=== PATIENT | male | born 1990 | race African-American/Black ===

== ENCOUNTER 2017-07-10 07:13 | Inpatient (IN) | payer MEDICARE, MEDICAID ==
[~2017-07-10] VITALS: Ht 170.2 cm; Wt 89.5 kg
[~2017-07-10 07:13] MED LIST: DIVA250T60 PO; DIVA500T69 PO; RISP4 PO
[2017-07-10 08:51] VITALS: BP 109/74
[2017-07-10] MEDS ORDERED: RISP1 PO (09:49)
[2017-07-10] MEDS ORDERED: OLAN2.5T3 PO (09:49)
[2017-07-10 10:08] VITALS: BP 117/69
[2017-07-10] MEDS ORDERED: INFLUENZA VIRUS VACCINE QVS 2017-18 (3YR+)/PF 60 MCG/0.5 ML SYRINGE IM ONE (10:30)
[2017-07-10] MEDS ORDERED: PALI234D IM (11:30)
[2017-07-10] MEDS ORDERED: OLAN10TA3 PO ×2 (11:30)
[2017-07-10 15:56] VITALS: BP 101/47
[2017-07-10] MEDS ORDERED: LOPERAMIDE HCL 2 MG CAPSULE PO PRN (17:45)
[2017-07-10] MEDS ORDERED: CloNIDine HCL 0.1 MG TABLET PO PRN (17:45)
[2017-07-10] MEDS ORDERED: ALBUTEROL SULFATE HFA 90 MCG/PUFF 8 GM INHALER IH PRN (17:45)
[2017-07-10] MEDS ORDERED: PETROLATUM,WHITE 71 GM JELLY TP PRN (17:45)
[2017-07-10] MEDS ORDERED: ONDANSETRON HCL 4 MG TABLET PO PRN (17:45)
[2017-07-10] MEDS ORDERED: BENZOCAINE/MENTHOL LOZENGE MM PRN (17:45)
[2017-07-10] MEDS ORDERED: MAGNESIUM HYDROXIDE SUSPENSION 30 ML UDCUP PO PRN (17:45)
[2017-07-10] MEDS ORDERED: IBUPROFEN 600 MG TABLET PO PRN (17:45)
[2017-07-10] MEDS ORDERED: ACETAMINOPHEN 325 MG TABLET PO PRN (17:45)
[2017-07-10] MEDS ORDERED: BACITRACIN 28.4 GM OINTMENT TP PRN (17:45)
[2017-07-10 18:07] VITALS: BP 108/58
[2017-07-10] MEDS: OLANZapine 7.5 MG TABLET PO SCH (20:16)
[2017-07-11 06:45] VITALS: BP 112/64
[2017-07-11 08:04] VITALS: BP 108/65
[2017-07-11] MEDS: DOCUSATE SODIUM 100 MG CAPSULE PO SCH (08:09)
[2017-07-11] MEDS: OMEPRAZOLE 20 MG CAPSULE PO SCH (08:09)
[2017-07-11 16:02] VITALS: BP 107/68
[2017-07-11] MEDS: OLANZapine 7.5 MG TABLET PO SCH (20:04)
[2017-07-12 05:51] VITALS: BP 117/64
[2017-07-12 08:30] VITALS: BP 123/80
[2017-07-12 08:42] LABS: BASOPHILS # (AUTO) 0.05 K/uL (0.00-0.20); BASOPHILS % (AUTO) 0.7 % (0.0-2.0); EOSINOPHILS # (AUTO) 0.26 K/uL (0.00-0.70); EOSINOPHILS % (AUTO) 3.75 % (1.0-6.0); HEMATOCRIT 44.4 % (41-53); HEMOGLOBIN 14.6 g/dL (13.5-17.5); LYMPHOCYTES # (AUTO) 2.4 K/uL (1.0-4.8); LYMPHOCYTES % (AUTO) 34.4 % (22.0-44.0); MEAN CORPUSCULAR HEMOGLOBIN 29.9 pg (26.0-34.0); MEAN CORPUSCULAR HGB CONC 32.8 G/dL (31.0-37.0); MEAN CORPUSCULAR VOLUME 91 fL (80-100); MONOCYTES # (AUTO) 0.6 K/uL (0.1-1.0); MONOCYTES % (AUTO) 7.9 % (2.0-9.0); NEUTROPHILS # (AUTO) 3.7 K/uL (1.8-7.7); NEUTROPHILS % (AUTO) 53.3 % (40.0-70.0); PLATELET COUNT (AUTO) 291 K/uL (150-450); RED BLOOD CELL COUNT(AUTO) 4.87 MIL/uL (4.50-5.90)
[2017-07-12] MEDS: DOCUSATE SODIUM 100 MG CAPSULE PO SCH (08:51)
[2017-07-12] MEDS: OMEPRAZOLE 20 MG CAPSULE PO SCH (08:52)
[2017-07-12 09:22] LABS: HEMOGLOBIN A1C 5.1 % (4.5-6.2)
[2017-07-12 09:44] LABS: ALANINE AMINOTRANSFERASE 61 U/L (12-78); ALBUMIN 3.5 g/dL (3.4-5.0); ALKALINE PHOSPHATASE 67 U/L (46-116); ANION GAP 9 mmol/L (8-16); ASPARTATE AMINOTRANSFERASE 40 U/L (15-37); BILIRUBIN,TOTAL 0.3 mg/dL (0.1-1.0); CALCIUM, TOTAL 8.6 mg/dL (8.8-10.5); CARBON DIOXIDE 27 mmol/L (22-29); CHLORIDE 104 mmol/L (98-107); CHOL/HDL RATIO 4.4 (4.2-7.3); CHOLESTEROL 146 mg/dL (131-200); CREATININE 1.12 mg/dL (0.60-1.30); GLOMERULAR FILTR. RATE CALC > 60 mL/min (>60); GLUCOSE,RANDOM 81 mg/dL (70-110); HDL CHOLESTEROL 33 mg/dL (40-60); LDL CHOL (CALC.) 103 mg/dL (0-130); POTASSIUM 4.1 mmol/L (3.5-5.1); SODIUM SERUM 140 mmol/L (136-145); TRIGLYCERIDES 48 mg/dL (15-150); UREA NITROGEN, BLOOD 12 mg/dL (7-18)
[2017-07-12 10:07] LABS: FREE T4 (FREE THYROXINE) 0.93 ng/dL (0.76-1.46); THYROID STIMULATING HORMONE 1.21 uIU/mL (0.36-3.74)
[2017-07-12 16:10] VITALS: BP 114/59
[2017-07-12 19:37] VITALS: BP 134/78
[2017-07-12] MEDS: LORazepam 2 MG TABLET PO PRN (19:40)
[2017-07-12] MEDS: OLANZapine 7.5 MG TABLET PO SCH (20:06)
[2017-07-13 00:26] VITALS: BP 108/69
[2017-07-13 08:30] VITALS: BP 122/80
[2017-07-13] MEDS: DOCUSATE SODIUM 100 MG CAPSULE PO SCH (09:20)
[2017-07-13] MEDS: OMEPRAZOLE 20 MG CAPSULE PO SCH (09:20)
[2017-07-13 16:14] VITALS: BP 117/62
[2017-07-13] MEDS: LORazepam 2 MG TABLET PO PRN (18:37)
[2017-07-13] MEDS: OLANZapine 7.5 MG TABLET PO SCH (20:31)
[2017-07-13] MEDS: MAG HYDROX/AL HYDROX/SIMETH ES 30 ML SUSPENSION UDCUP PO PRN (21:11)
[2017-07-13] MEDS: ZOLPIDEM TARTRATE 10 MG TABLET PO PRN (21:12)
[2017-07-14 00:15] VITALS: BP 112/62
[2017-07-14] MEDS: OMEPRAZOLE 20 MG CAPSULE PO SCH (08:25)
[2017-07-14] MEDS: DOCUSATE SODIUM 100 MG CAPSULE PO SCH (08:25)
[2017-07-14 08:26] VITALS: BP 123/71
[2017-07-14] MEDS: LORazepam 2 MG TABLET PO PRN ×3 (10:38→21:06)
[2017-07-14 16:19] VITALS: BP 133/77
[2017-07-14] MEDS: OLANZapine 7.5 MG TABLET PO SCH (20:42)
[2017-07-15 04:37] VITALS: BP 129/72
[2017-07-15 08:34] VITALS: BP 100/58
[2017-07-15] MEDS: OMEPRAZOLE 20 MG CAPSULE PO SCH (08:36)
[2017-07-15] MEDS: DOCUSATE SODIUM 100 MG CAPSULE PO SCH (08:36)
[2017-07-15] MEDS: LORazepam 2 MG TABLET PO PRN ×2 (11:46→16:15)
[2017-07-15 16:36] VITALS: BP 140/74
[2017-07-15] MEDS: OLANZapine 7.5 MG TABLET PO SCH (20:11)
[2017-07-16 03:00] VITALS: BP 132/82
[2017-07-16] MEDS: OMEPRAZOLE 20 MG CAPSULE PO SCH (08:33)
[2017-07-16] MEDS: DOCUSATE SODIUM 100 MG CAPSULE PO SCH (08:33)
[2017-07-16 08:35] VITALS: BP 105/72
[2017-07-16] MEDS: LORazepam 2 MG TABLET PO PRN ×2 (11:49→16:31)
[2017-07-16 16:07] VITALS: BP 110/75
[2017-07-16] MEDS: OLANZapine 7.5 MG TABLET PO SCH (20:24)
[2017-07-16] MEDS: ZOLPIDEM TARTRATE 10 MG TABLET PO PRN (20:24)
[2017-07-16] MEDS: HALOPERIDOL 5 MG TABLET PO PRN (20:55)
[2017-07-17 05:41] VITALS: BP 104/60
[2017-07-17] MEDS: DOCUSATE SODIUM 100 MG CAPSULE PO SCH (08:22)
[2017-07-17] MEDS: OMEPRAZOLE 20 MG CAPSULE PO SCH (08:22)
[2017-07-17 08:53] VITALS: BP 134/70
[2017-07-17 09:08] LABS: AMPHET/METH SCREEN,URINE NEGATIVE (NEGATIVE); BARBITURATE SCREEN, URINE NEGATIVE (NEGATIVE); BENZODIAZEPINES SCREEN,URINE NEGATIVE (NEGATIVE); CANNABINOID SCREEN,URINE NEGATIVE (NEGATIVE); COCAINE SCREEN,URINE NEGATIVE (NEGATIVE); METHADONE SCREEN, URINE NEGATIVE (NEGATIVE); OPIATE SCREEN,URINE NEGATIVE (NEGATIVE)
[2017-07-17 09:14] LABS: PHENCYCLIDINE SCREEN,URINE NEGATIVE (NEGATIVE)
[2017-07-17 09:46] LABS: BILIRUBIN,URINE NEGATIVE (NEGATIVE); GLUCOSE, URINE (UA) NEGATIVE (NEGATIVE); KETONES,URINE NEGATIVE (NEGATIVE); LEUKOCYTE ESTERASE ,URINE NEGATIVE (NEGATIVE); NITRATE,URINE NEGATIVE (NEGATIVE); OCCULT BLOOD,URINE NEGATIVE (NEGATIVE); PH,URINE 8.5 (5.0-8.0); PROTEIN,URINE NEGATIVE (NEGATIVE); UROBILINOGEN,URINE 0.2 mg/dL (<=1.0)
[2017-07-17 09:47] LABS: APPEARANCE,URINE CLOUDY (CLEAR)
[2017-07-17 10:35] LABS: AMORPHOUS SEDIMENT,UR Moderate /LPF (None Seen); BACTERIA,URINE None Seen /HPF (None Seen); RBC,URINE None Seen /HPF (0-2); SQUAMOUS EPITHELIAL CELL,UR Rare /LPF (None Seen); WBC,URINE None Seen /HPF (0-5)
[2017-07-17 11:34] VITALS: BP 139/90
[2017-07-17] MEDS: LORazepam 2 MG TABLET PO PRN ×2 (11:35→17:13)
[2017-07-17 16:04] VITALS: BP 128/86
[2017-07-17] MEDS: OLANZapine 7.5 MG TABLET PO SCH (20:15)
[2017-07-17] MEDS: ZOLPIDEM TARTRATE 10 MG TABLET PO PRN (21:50)
[2017-07-18 00:57] VITALS: BP 108/61
[2017-07-18] MEDS: DOCUSATE SODIUM 100 MG CAPSULE PO SCH (08:04)
[2017-07-18] MEDS: OMEPRAZOLE 20 MG CAPSULE PO SCH (08:04)
[2017-07-18] MEDS: LORazepam 2 MG TABLET PO PRN (15:00)
[2017-07-18 16:06] VITALS: BP 127/77
[2017-07-18] MEDS: OLANZapine 7.5 MG TABLET PO SCH (20:12)
[2017-07-18] MEDS: ZOLPIDEM TARTRATE 10 MG TABLET PO PRN (21:37)
[2017-07-19 06:14] VITALS: BP 101/60
[2017-07-19] MEDS: OMEPRAZOLE 20 MG CAPSULE PO SCH (08:24)
[2017-07-19] MEDS: DOCUSATE SODIUM 100 MG CAPSULE PO SCH (08:24)
[2017-07-19 08:30] VITALS: BP 112/60
[2017-07-19] MEDS: LORazepam 2 MG TABLET PO PRN (12:58)
[2017-07-19 16:13] VITALS: BP 103/58
[2017-07-19] MEDS: OLANZapine 7.5 MG TABLET PO SCH (20:16)
[2017-07-19] MEDS: ZOLPIDEM TARTRATE 10 MG TABLET PO PRN (21:24)
[2017-07-20 06:34] VITALS: BP 101/60
[2017-07-20] MEDS: DOCUSATE SODIUM 100 MG CAPSULE PO SCH (08:42)
[2017-07-20] MEDS: OMEPRAZOLE 20 MG CAPSULE PO SCH (08:42)
[2017-07-20 13:26] VITALS: BP 121/63
[2017-07-20 16:14] VITALS: BP 128/72
[2017-07-20] MEDS: LORazepam 2 MG TABLET PO PRN (19:09)
[2017-07-20] MEDS: OLANZapine 7.5 MG TABLET PO SCH (20:39)
[2017-07-21] MEDS: OMEPRAZOLE 20 MG CAPSULE PO SCH (08:20)
[2017-07-21] MEDS: DOCUSATE SODIUM 100 MG CAPSULE PO SCH (08:20)
[2017-07-21 10:44] VITALS: BP 115/76
[2017-07-21 16:21] VITALS: BP 108/59
[2017-07-21] MEDS: OLANZapine 7.5 MG TABLET PO SCH (20:09)
[2017-07-21] MEDS: ZOLPIDEM TARTRATE 10 MG TABLET PO PRN (20:51)
[2017-07-22 00:45] VITALS: BP 121/71
[2017-07-22] MEDS: DOCUSATE SODIUM 100 MG CAPSULE PO SCH (08:13)
[2017-07-22] MEDS: OMEPRAZOLE 20 MG CAPSULE PO SCH (08:13)
[2017-07-22 08:42] VITALS: BP 112/66
[2017-07-22] MEDS: LORazepam 2 MG TABLET PO PRN ×2 (13:55→18:57)
[2017-07-22 16:16] VITALS: BP 133/71
[2017-07-22] MEDS: HALOPERIDOL 5 MG TABLET PO PRN (17:54)
[2017-07-22] MEDS: OLANZapine 7.5 MG TABLET PO SCH (20:04)
[2017-07-22] MEDS: ZOLPIDEM TARTRATE 10 MG TABLET PO PRN (20:33)
[2017-07-23 08:24] VITALS: BP 105/60
[2017-07-23] MEDS: OMEPRAZOLE 20 MG CAPSULE PO SCH (08:27)
[2017-07-23] MEDS: DOCUSATE SODIUM 100 MG CAPSULE PO SCH (08:27)
[2017-07-23] MEDS: LORazepam 2 MG TABLET PO PRN ×2 (12:43→17:04)
[2017-07-23 16:08] VITALS: BP 122/60
[2017-07-23] MEDS: HALOPERIDOL 5 MG TABLET PO PRN (18:42)
[2017-07-23] MEDS: OLANZapine 7.5 MG TABLET PO SCH (20:17)
[2017-07-23] MEDS: ZOLPIDEM TARTRATE 10 MG TABLET PO PRN (21:33)
[2017-07-24 01:42] VITALS: BP 132/90
[2017-07-24 08:30] VITALS: BP 123/81
[2017-07-24] MEDS: DOCUSATE SODIUM 100 MG CAPSULE PO SCH (08:36)
[2017-07-24] MEDS: OMEPRAZOLE 20 MG CAPSULE PO SCH (08:36)
[2017-07-24] MEDS: LORazepam 2 MG TABLET PO PRN (13:10)
[2017-07-24] MEDS ORDERED: TUBERCULIN, PURIFIED PROTEIN DERIVATIVE 5 TU/0.1 ML SYG ID ONE (13:45)
[2017-07-24] MEDS: HALOPERIDOL 5 MG TABLET PO PRN (15:44)
[2017-07-24 16:19] VITALS: BP 100/82
[2017-07-24] MEDS: OLANZapine 7.5 MG TABLET PO SCH (20:05)
[2017-07-24] MEDS: ZOLPIDEM TARTRATE 10 MG TABLET PO PRN (21:50)
[2017-07-25 00:18] VITALS: BP 117/83
[2017-07-25] MEDS: DOCUSATE SODIUM 100 MG CAPSULE PO SCH (08:20)
[2017-07-25] MEDS: OMEPRAZOLE 20 MG CAPSULE PO SCH (08:20)
[2017-07-25 08:34] VITALS: BP 107/60
[2017-07-25] MEDS: LORazepam 2 MG TABLET PO PRN (15:46)
[2017-07-25 16:14] VITALS: BP 108/61
[2017-07-25] MEDS: HALOPERIDOL 5 MG TABLET PO PRN (18:45)
[2017-07-25] MEDS: OLANZapine 7.5 MG TABLET PO SCH (20:05)
[2017-07-26 06:01] VITALS: BP 105/60
[2017-07-26 08:30] VITALS: BP 107/63
[2017-07-26] MEDS: OMEPRAZOLE 20 MG CAPSULE PO SCH (08:47)
[2017-07-26] MEDS: DOCUSATE SODIUM 100 MG CAPSULE PO SCH (08:47)
[2017-07-26 16:06] VITALS: BP 119/69
[2017-07-26] MEDS: LORazepam 2 MG TABLET PO PRN (17:35)
[2017-07-26] MEDS: ZOLPIDEM TARTRATE 10 MG TABLET PO PRN (20:19)
[2017-07-26] MEDS: OLANZapine 7.5 MG TABLET PO SCH (20:19)
[2017-07-27 05:41] VITALS: BP 112/61
[2017-07-27 08:14] VITALS: BP 111/61
[2017-07-27] MEDS: OMEPRAZOLE 20 MG CAPSULE PO SCH (08:33)
[2017-07-27] MEDS: DOCUSATE SODIUM 100 MG CAPSULE PO SCH (08:33)
[2017-07-27] MEDS: MAG HYDROX/AL HYDROX/SIMETH ES 30 ML SUSPENSION UDCUP PO PRN (15:06)
[2017-07-27 16:05] VITALS: BP 105/60
[2017-07-27] MEDS: ZOLPIDEM TARTRATE 10 MG TABLET PO PRN (20:22)
[2017-07-27] MEDS: OLANZapine 7.5 MG TABLET PO SCH (20:22)
[2017-07-27] MEDS: LORazepam 2 MG TABLET PO PRN (22:05)
[2017-07-28 00:01] VITALS: BP 107/63
[2017-07-28 08:13] VITALS: BP 131/86
[2017-07-28] MEDS: OMEPRAZOLE 20 MG CAPSULE PO SCH (09:09)
[2017-07-28] MEDS: DOCUSATE SODIUM 100 MG CAPSULE PO SCH (09:09)
[2017-07-28] MEDS: LORazepam 2 MG TABLET PO PRN ×2 (13:21→17:55)
[2017-07-28 16:03] VITALS: BP 129/82
[2017-07-28] MEDS: OLANZapine 7.5 MG TABLET PO SCH (20:32)
[2017-07-28] MEDS: ZOLPIDEM TARTRATE 10 MG TABLET PO PRN (21:14)
[2017-07-29 00:01] VITALS: BP 110/68
[2017-07-29 08:55] VITALS: BP 115/57
[2017-07-29] MEDS: DOCUSATE SODIUM 100 MG CAPSULE PO SCH (09:31)
[2017-07-29] MEDS: OMEPRAZOLE 20 MG CAPSULE PO SCH (09:31)
[2017-07-29] MEDS: LORazepam 2 MG TABLET PO PRN (12:20)
== END 2017-07-29 14:30 | disposition home or self-care (01) | DRG 885 ==
LOC: B2X 09:23
PROVIDERS: ADMIT Psychiatry & Neurology Psychiatry; ATTEND Psychiatry & Neurology Psychiatry
DX: F20.0 Paranoid schizophrenia (principal); E83.51 Hypocalcemia; F17.200 Nicotine dependence, unspecified, uncomplicated; G47.00 Insomnia, unspecified; K59.00 Constipation, unspecified; Z79.899 Other long term (current) drug therapy
CPT/HCPCS: 80307; 82306; 83036; 84439; 84443

== ENCOUNTER 2018-08-18 22:54 | Emergency (ER) | payer MEDICARE, OTHER ==
[~2018-08-18] VITALS: Ht 172.7 cm; Wt 90.5 kg
[~2018-08-18 22:54] MED LIST changes: -DIVA250T60 PO; -DIVA500T69 PO; +OLAN10TA3 PO; +PALI234D IM; -RISP4 PO
[2018-08-19] MEDS ORDERED: DIVA-78 PO (00:28)
[2018-08-19] MEDS ORDERED: ZOLP5 PO (00:28)
[2018-08-19] MEDS ORDERED: HALO50VI4 IM (00:28)
[2018-08-19] MEDS ORDERED: BENZ1TAB10 PO (00:28)
[2018-08-19] MEDS ORDERED: ATEN50TA PO (00:28)
[2018-08-19] MEDS ORDERED: LORA2TAB2 PO (00:28)
[2018-08-19] MEDS ORDERED: CLOZ100 PO (00:28)
[2018-08-19] MEDS ORDERED: CHLO100T24 PO (00:28)
[2018-08-19] MEDS ORDERED: DIPH50 PO (00:28)
[2018-08-19 00:56] LABS: EOSINOPHILS % (AUTO) 0.5 % (1.0-6.0); HEMATOCRIT 43.5 % (41-53); HEMOGLOBIN 14.3 g/dL (13.5-17.5); LYMPHOCYTES # (AUTO) 2.9 K/uL (1.0-4.8); LYMPHOCYTES % (AUTO) 24.2 % (22.0-44.0); MEAN CORPUSCULAR HEMOGLOBIN 30.2 pg (26.0-34.0); MEAN CORPUSCULAR HGB CONC 32.9 G/dL (31.0-37.0); MEAN CORPUSCULAR VOLUME 92 fL (80-100); MONOCYTES # (AUTO) 1.3 K/uL (0.1-1.0); MONOCYTES % (AUTO) 11.1 % (2.0-9.0); NEUTROPHILS # (AUTO) 7.7 K/uL (1.8-7.7); NEUTROPHILS % (AUTO) 63.2 % (40.0-70.0); PLATELET COUNT (AUTO) 242 K/uL (150-450); RED BLOOD CELL COUNT(AUTO) 4.74 MIL/uL (4.50-5.90); RED CELL DISTRIBUTION WIDTH 14.3 % (11.5-14.5)
[2018-08-19 01:05] LABS: ANION GAP 8 mmol/L (8-16); CALCIUM, TOTAL 9.4 mg/dL (8.8-10.5); CARBON DIOXIDE 30 mmol/L (22-29); CHLORIDE 102 mmol/L (98-107); CREATININE 1.04 mg/dL (0.60-1.30); GLOMERULAR FILTR. RATE CALC > 60 mL/min (>60); GLUCOSE,RANDOM 79 mg/dL (70-110); POTASSIUM 4.2 mmol/L (3.5-5.1); SODIUM SERUM 140 mmol/L (136-145); UREA NITROGEN, BLOOD 14 mg/dL (7-18)
[2018-08-19 01:11] LABS: ALANINE AMINOTRANSFERASE 170 U/L (12-78); ALBUMIN 3.8 g/dL (3.4-5.0); ALKALINE PHOSPHATASE 58 U/L (46-116); ASPARTATE AMINOTRANSFERASE 93 U/L (15-37); BILIRUBIN,TOTAL 0.4 mg/dL (0.1-1.0); TOTAL PROTEIN, SERUM 7.7 g/dL (6.4-8.2)
[2018-08-19 02:26] LABS: VALPROIC ACID 55 mcg/mL (50-100)
[2018-08-19 03:37] LABS: AMPHET/METH SCREEN,URINE NEGATIVE (NEGATIVE); BARBITURATE SCREEN, URINE NEGATIVE (NEGATIVE); BENZODIAZEPINES SCREEN,URINE NEGATIVE (NEGATIVE); CANNABINOID SCREEN,URINE NEGATIVE (NEGATIVE); COCAINE SCREEN,URINE NEGATIVE (NEGATIVE); METHADONE SCREEN, URINE NEGATIVE (NEGATIVE); OPIATE SCREEN,URINE NEGATIVE (NEGATIVE); PHENCYCLIDINE SCREEN,URINE NEGATIVE (NEGATIVE)
[2018-08-19 03:45] VITALS: BP 134/78
== END 2018-08-19 04:35 | disposition home or self-care (01) ==
LOC: EMS 22:55
DX: F20.9 Schizophrenia, unspecified (principal); I10 Essential (primary) hypertension; F12.90 Cannabis use, unspecified, uncomplicated; F17.210 Nicotine dependence, cigarettes, uncomplicated; Z79.899 Other long term (current) drug therapy
CPT/HCPCS: 36415; 80053; 80164; 80307; 85025; 99284; 99406; G0480

== ENCOUNTER 2020-08-27 16:35 | Inpatient (IN) | payer MEDICARE, MEDICAID ==
[~2020-08-27] VITALS: Ht 167.6 cm; Wt 65.8 kg
[~2020-08-27 16:35] MED LIST changes: +ATEN-72 PO; +BENZ1TAB10 PO; +CHLO100T31 PO; +CLOZ100T32 PO; +DIPH50 PO; +DIVA-112 PO; +HALO50VI4 IM; +LORA-1001 PO; +ZOLP-280 PO
[2020-08-27] MEDS ORDERED: DIVA-80 PO (16:40)
[2020-08-27] MEDS ORDERED: LORazepam 2 MG TABLET PO PRN (19:00)
[2020-08-27] MEDS ORDERED: HALOPERIDOL DECANOATE 50 MG/ML VIAL IM ONE (19:00)
[2020-08-27] MEDS ORDERED: HALOPERIDOL 5 MG TABLET PO PRN (19:00)
[2020-08-27] MEDS ORDERED: PROMETHAZINE HCL 25 MG TABLET PO PRN (19:00)
[2020-08-27] MEDS ORDERED: TUBERCULIN, PURIFIED PROTEIN DERIVATIVE 5 TU/0.1 ML SYRINGE ID ONE (19:00)
[2020-08-27] MEDS ORDERED: MAG HYDROX/AL HYDROX/SIMETH ES 30 ML SUSPENSION UDCUP PO PRN (19:00)
[2020-08-27] MEDS ORDERED: HydrOXYzine PAMOATE 50 MG CAPSULE PO PRN (19:00)
[2020-08-27] MEDS ORDERED: GuaiFENesin/D-METHORPHAN [SUGAR-FREE] 200-20MG/10 ML SYRUP UDCUP PO PRN (19:00)
[2020-08-27] MEDS ORDERED: MAGNESIUM HYDROXIDE SUSPENSION 30 ML UDCUP PO PRN (19:00)
[2020-08-27] MEDS ORDERED: LOPERAMIDE HCL 2 MG CAPSULE PO PRN (19:00)
[2020-08-27] MEDS ORDERED: HALOPERIDOL LACTATE 5 MG/ML VIAL IM PRN (19:00)
[2020-08-27] MEDS ORDERED: OLAN7.5T2 PO (19:17)
[2020-08-27 19:59] VITALS: BP 104/67
[2020-08-27] MEDS ORDERED: INFLUENZA VIRUS VACCINE QVS 2020-21 (6MO+)/PF 60 MCG/0.5 ML SYRINGE IM ONE (20:15)
[2020-08-27] MEDS: THIAMINE 100 MG TABLET PO SCH (21:12)
[2020-08-27] MEDS: HALOPERIDOL 10 MG TABLET PO SCH (21:12)
[2020-08-27] MEDS: MELATONIN 5 MG TABLET PO SCH (21:12)
[2020-08-27] MEDS: BENZTROPINE MESYLATE 1 MG TABLET PO SCH (21:13)
[2020-08-27] MEDS: DIVALPROEX SODIUM 500 MG ER TABLET PO SCH (21:13)
[2020-08-28 00:43] VITALS: BP 115/75
[2020-08-28] MEDS: ZOLPIDEM TARTRATE 10 MG TABLET PO PRN ×2 (00:48→23:35)
[2020-08-28 08:10] VITALS: BP 119/76
[2020-08-28] MEDS ORDERED: CloZAPine 25 MG TABLET PO SCH (09:00)
[2020-08-28] MEDS: NALTREXONE HCL 50 MG TABLET PO SCH (09:26)
[2020-08-28] MEDS: FOLIC ACID 1 MG TABLET PO SCH (09:26)
[2020-08-28] MEDS: THIAMINE 100 MG TABLET PO SCH ×2 (09:26→16:50)
[2020-08-28] MEDS: OMEGA-3/DHA/EPA/FISH OIL 1,000 MG CAPSULE PO SCH (09:26)
[2020-08-28] MEDS: MULTIVITAMINS WITH MINERALS, THERAPEUTIC TABLET PO SCH (09:26)
[2020-08-28] MEDS: BENZTROPINE MESYLATE 1 MG TABLET PO SCH ×3 (09:26→16:50)
[2020-08-28] MEDS ORDERED: NICOTINE POLACRILEX 4 MG LOZENGE PO PRN (11:15)
[2020-08-28 16:06] VITALS: BP 108/60
[2020-08-28] MEDS: HALOPERIDOL 10 MG TABLET PO SCH (20:17)
[2020-08-28] MEDS: DIVALPROEX SODIUM 500 MG ER TABLET PO SCH (20:17)
[2020-08-28] MEDS: MELATONIN 5 MG TABLET PO SCH (20:17)
[2020-08-28] MEDS: HALOPERIDOL 5 MG TABLET PO PRN (23:35)
[2020-08-29 00:05] VITALS: BP 137/90
[2020-08-29 03:11] VITALS: BP 106/69
[2020-08-29] MEDS: THIAMINE 100 MG TABLET PO SCH ×2 (08:38→16:27)
[2020-08-29] MEDS: BENZTROPINE MESYLATE 1 MG TABLET PO SCH ×3 (08:38→16:27)
[2020-08-29] MEDS: OMEGA-3/DHA/EPA/FISH OIL 1,000 MG CAPSULE PO SCH (08:38)
[2020-08-29] MEDS: MULTIVITAMINS WITH MINERALS, THERAPEUTIC TABLET PO SCH (08:38)
[2020-08-29] MEDS: FOLIC ACID 1 MG TABLET PO SCH (08:38)
[2020-08-29] MEDS ORDERED: CloZAPine 25 MG TABLET PO SCH ×5 (09:00→21:00)
[2020-08-29 09:20] LABS: BASOPHILS % (AUTO) 0.8 % (0.0-2.0); EOSINOPHILS % (AUTO) 1.5 % (1.0-6.0); LYMPHOCYTES # (AUTO) 2.5 K/uL (1.0-4.8); LYMPHOCYTES % (AUTO) 28.6 % (22.0-44.0); MEAN CORPUSCULAR HEMOGLOBIN 29.7 pg (26.0-34.0); MEAN CORPUSCULAR HGB CONC 33.3 G/dL (31.0-37.0); MEAN CORPUSCULAR VOLUME 89 fL (80-100); MONOCYTES # (AUTO) 0.7 K/uL (0.1-1.0); MONOCYTES % (AUTO) 7.8 % (2.0-9.0); NEUTROPHILS # (AUTO) 5.3 K/uL (1.8-7.7); NEUTROPHILS % (AUTO) 61.3 % (40.0-70.0); PLATELET COUNT (AUTO) 320 K/uL (150-450); RED BLOOD CELL COUNT(AUTO) 4.71 MIL/uL (4.50-5.90); RED CELL DISTRIBUTION WIDTH 14.1 % (11.5-14.5)
[2020-08-29] MEDS: NALTREXONE HCL 50 MG TABLET PO SCH (09:34)
[2020-08-29 10:27] LABS: ALANINE AMINOTRANSFERASE 23 U/L (12-78); ALBUMIN 3.8 g/dL (3.4-5.0); ALKALINE PHOSPHATASE 79 U/L (46-116); ANION GAP 7 mmol/L (8-16); ASPARTATE AMINOTRANSFERASE 21 U/L (15-37); BILIRUBIN,TOTAL 0.3 mg/dL (0.1-1.0); CALCIUM, TOTAL 9.1 mg/dL (8.8-10.5); CARBON DIOXIDE 30 mmol/L (22-29); CHLORIDE 106 mmol/L (98-107); CHOL/HDL RATIO 3.3 (4.2-7.3); CHOLESTEROL 153 mg/dL (131-200); CREATININE 1.02 mg/dL (0.60-1.30); FREE T4 (FREE THYROXINE) 0.81 ng/dL (0.76-1.46); GLOMERULAR FILTR. RATE CALC > 60 mL/min (>60); GLUCOSE,RANDOM 65 mg/dL (70-110); HDL CHOLESTEROL 46 mg/dL (40-60); LDL CHOL (CALC.) 87 mg/dL (0-130); POTASSIUM 4.4 mmol/L (3.5-5.1); SODIUM SERUM 143 mmol/L (136-145); THYROID STIMULATING HORMONE 0.79 uIU/mL (0.36-3.74); TOTAL PROTEIN, SERUM 7.3 g/dL (6.4-8.2); TRIGLYCERIDES 102 mg/dL (15-150); UREA NITROGEN, BLOOD 13 mg/dL (7-18); VALPROIC ACID 4 mcg/mL (50-100)
[2020-08-29 11:00] LABS: HEMOGLOBIN A1C 4.6 % (3.8-5.6)
[2020-08-29] MEDS ORDERED: HALOPERIDOL LACTATE 5 MG/ML VIAL IM ONE (17:00)
[2020-08-29] MEDS ORDERED: DiphenhydrAMINE HCL 50 MG/ML VIAL IM ONE (17:00)
[2020-08-29] MEDS ORDERED: LORazepam 2 MG/ML VIAL IM ONE (17:00)
[2020-08-29] MEDS: DIVALPROEX SODIUM 500 MG ER TABLET PO SCH (23:42)
[2020-08-29] MEDS: MELATONIN 5 MG TABLET PO SCH (23:42)
[2020-08-29] MEDS: HALOPERIDOL 10 MG TABLET PO SCH (23:42)
[2020-08-30] MEDS: ZOLPIDEM TARTRATE 10 MG TABLET PO PRN ×2 (03:41→20:13)
[2020-08-30] MEDS: MULTIVITAMINS WITH MINERALS, THERAPEUTIC TABLET PO SCH (09:00)
[2020-08-30] MEDS: THIAMINE 100 MG TABLET PO SCH ×2 (09:00→17:06)
[2020-08-30] MEDS: OMEGA-3/DHA/EPA/FISH OIL 1,000 MG CAPSULE PO SCH (09:00)
[2020-08-30] MEDS: FOLIC ACID 1 MG TABLET PO SCH (09:00)
[2020-08-30] MEDS ORDERED: CloZAPine 25 MG TABLET PO SCH ×4 (09:00→21:00)
[2020-08-30] MEDS: HALOPERIDOL 5 MG TABLET PO PRN (09:38)
[2020-08-30] MEDS: BENZTROPINE MESYLATE 1 MG TABLET PO SCH ×4 (09:38→17:10)
[2020-08-30] MEDS: NALTREXONE HCL 50 MG TABLET PO SCH (09:38)
[2020-08-30] MEDS: BENZTROPINE MESYLATE 0.5 MG TABLET PO SCH (17:20)
[2020-08-30] MEDS: HALOPERIDOL 10 MG TABLET PO SCH (20:13)
[2020-08-30] MEDS: MELATONIN 5 MG TABLET PO SCH (20:14)
[2020-08-30] MEDS: DIVALPROEX SODIUM 500 MG ER TABLET PO SCH (20:14)
[2020-08-31 01:03] VITALS: BP 112/69
[2020-08-31] MEDS: HALOPERIDOL 5 MG TABLET PO PRN ×3 (01:21→14:12)
[2020-08-31 08:19] VITALS: BP 120/76
[2020-08-31] MEDS ORDERED: CloZAPine 25 MG TABLET PO SCH ×3 (09:00→21:00)
[2020-08-31] MEDS: OMEGA-3/DHA/EPA/FISH OIL 1,000 MG CAPSULE PO SCH (09:16)
[2020-08-31] MEDS: THIAMINE 100 MG TABLET PO SCH ×2 (09:16→16:33)
[2020-08-31] MEDS: MULTIVITAMINS WITH MINERALS, THERAPEUTIC TABLET PO SCH (09:17)
[2020-08-31] MEDS: FOLIC ACID 1 MG TABLET PO SCH (09:17)
[2020-08-31] MEDS: BENZTROPINE MESYLATE 0.5 MG TABLET PO SCH ×3 (09:17→16:33)
[2020-08-31] MEDS: NALTREXONE HCL 50 MG TABLET PO SCH (09:29)
[2020-08-31] MEDS ORDERED: DiphenhydrAMINE HCL 50 MG/ML VIAL ONE (15:09)
[2020-08-31] MEDS ORDERED: LORazepam 2 MG/ML VIAL ONE (15:09)
[2020-08-31] MEDS ORDERED: DiphenhydrAMINE HCL 50 MG/ML VIAL IM ONE (15:15)
[2020-08-31] MEDS ORDERED: LORazepam 2 MG/ML VIAL IM ONE (15:15)
[2020-08-31] MEDS ORDERED: HALOPERIDOL LACTATE 5 MG/ML VIAL IM ONE (15:15)
[2020-08-31 16:13] VITALS: BP 111/69
[2020-08-31] MEDS: MELATONIN 5 MG TABLET PO SCH (20:43)
[2020-08-31] MEDS: DIVALPROEX SODIUM 500 MG ER TABLET PO SCH (20:43)
[2020-08-31] MEDS: HALOPERIDOL 10 MG TABLET PO SCH (20:43)
[2020-09-01 03:11] VITALS: BP 109/73
[2020-09-01] MEDS: ACETAMINOPHEN 325 MG TABLET PO PRN (06:10)
[2020-09-01 08:11] VITALS: BP 92/53
[2020-09-01] MEDS: OMEGA-3/DHA/EPA/FISH OIL 1,000 MG CAPSULE PO SCH (09:18)
[2020-09-01] MEDS: BENZTROPINE MESYLATE 0.5 MG TABLET PO SCH ×3 (09:18→17:00)
[2020-09-01] MEDS: THIAMINE 100 MG TABLET PO SCH ×2 (09:19→17:00)
[2020-09-01] MEDS: FOLIC ACID 1 MG TABLET PO SCH (09:19)
[2020-09-01] MEDS: NALTREXONE HCL 50 MG TABLET PO SCH (09:19)
[2020-09-01] MEDS: CloZAPine 25 MG TABLET PO SCH ×2 (09:19→21:00)
[2020-09-01] MEDS: MULTIVITAMINS WITH MINERALS, THERAPEUTIC TABLET PO SCH (09:19)
[2020-09-01] MEDS: HALOPERIDOL 10 MG TABLET PO SCH (21:00)
[2020-09-01] MEDS: MELATONIN 5 MG TABLET PO SCH (21:00)
[2020-09-01] MEDS: DIVALPROEX SODIUM 500 MG ER TABLET PO SCH (21:31)
[2020-09-01] MEDS: ZOLPIDEM TARTRATE 10 MG TABLET PO PRN (22:45)
[2020-09-02 00:55] VITALS: BP 88/74
[2020-09-02 01:30] VITALS: BP 110/70
[2020-09-02] MEDS: HALOPERIDOL 5 MG TABLET PO PRN (01:35)
[2020-09-02] MEDS ORDERED: LORazepam 2 MG/ML VIAL ONE (06:44)
[2020-09-02] MEDS ORDERED: DiphenhydrAMINE HCL 50 MG/ML VIAL ONE (06:45)
[2020-09-02] MEDS ORDERED: LORazepam 2 MG/ML VIAL IM ONE (07:00)
[2020-09-02] MEDS ORDERED: DiphenhydrAMINE HCL 50 MG/ML VIAL IM ONE (07:00)
[2020-09-02] MEDS ORDERED: HALOPERIDOL LACTATE 5 MG/ML VIAL IM ONE (07:00)
[2020-09-02 08:30] VITALS: BP 122/78
[2020-09-02] MEDS: MULTIVITAMINS WITH MINERALS, THERAPEUTIC TABLET PO SCH (09:00)
[2020-09-02] MEDS ORDERED: CloZAPine 25 MG TABLET PO SCH (09:00)
[2020-09-02] MEDS: CloZAPine 25 MG TABLET PO SCH ×2 (09:00→20:45)
[2020-09-02] MEDS: OMEGA-3/DHA/EPA/FISH OIL 1,000 MG CAPSULE PO SCH (09:00)
[2020-09-02] MEDS: NALTREXONE HCL 50 MG TABLET PO SCH (09:00)
[2020-09-02] MEDS: BENZTROPINE MESYLATE 0.5 MG TABLET PO SCH ×3 (09:00→17:03)
[2020-09-02] MEDS: FOLIC ACID 1 MG TABLET PO SCH (09:00)
[2020-09-02] MEDS: THIAMINE 100 MG TABLET PO SCH ×2 (09:00→17:03)
[2020-09-02 15:36] LABS: APPEARANCE,URINE CLEAR (CLEAR); BILIRUBIN,URINE NEGATIVE (NEGATIVE); GLUCOSE, URINE (UA) NEGATIVE (NEGATIVE); KETONES,URINE NEGATIVE (NEGATIVE); LEUKOCYTE ESTERASE ,URINE NEGATIVE (NEGATIVE); NITRATE,URINE NEGATIVE (NEGATIVE); OCCULT BLOOD,URINE NEGATIVE (NEGATIVE); PROTEIN,URINE NEGATIVE (NEGATIVE); UROBILINOGEN,URINE 0.2 mg/dL (<=1.0)
[2020-09-02] MEDS: DIVALPROEX SODIUM 500 MG ER TABLET PO SCH (20:45)
[2020-09-02] MEDS: MELATONIN 5 MG TABLET PO SCH (20:45)
[2020-09-02] MEDS: HALOPERIDOL 10 MG TABLET PO SCH (20:45)
[2020-09-02] MEDS: ZOLPIDEM TARTRATE 10 MG TABLET PO PRN (20:45)
[2020-09-02] MEDS ORDERED: CloZAPine 100 MG TABLET PO SCH (21:00)
[2020-09-03 00:44] VITALS: BP 149/89
[2020-09-03] MEDS: HALOPERIDOL 5 MG TABLET PO PRN ×2 (06:36→09:35)
[2020-09-03 08:21] VITALS: BP 125/86
[2020-09-03] MEDS ORDERED: CloZAPine 25 MG TABLET PO SCH ×2 (09:00)
[2020-09-03] MEDS: OMEGA-3/DHA/EPA/FISH OIL 1,000 MG CAPSULE PO SCH (09:35)
[2020-09-03] MEDS: NALTREXONE HCL 50 MG TABLET PO SCH (09:36)
[2020-09-03] MEDS: MULTIVITAMINS WITH MINERALS, THERAPEUTIC TABLET PO SCH (09:36)
[2020-09-03] MEDS: THIAMINE 100 MG TABLET PO SCH ×2 (09:36→17:09)
[2020-09-03] MEDS: FOLIC ACID 1 MG TABLET PO SCH (09:36)
[2020-09-03] MEDS: BENZTROPINE MESYLATE 0.5 MG TABLET PO SCH ×3 (09:36→17:09)
[2020-09-03 16:25] VITALS: BP 115/69
[2020-09-03] MEDS: DIVALPROEX SODIUM 500 MG ER TABLET PO SCH (20:51)
[2020-09-03] MEDS: HALOPERIDOL 10 MG TABLET PO SCH (20:51)
[2020-09-03] MEDS: MELATONIN 5 MG TABLET PO SCH (20:52)
[2020-09-03] MEDS ORDERED: CloZAPine 100 MG TABLET PO SCH ×2 (21:00)
[2020-09-03] MEDS: ZOLPIDEM TARTRATE 10 MG TABLET PO PRN (23:07)
[2020-09-04 00:02] VITALS: BP 147/92
[2020-09-04 07:59] VITALS: BP 140/81
[2020-09-04] MEDS: THIAMINE 100 MG TABLET PO SCH ×2 (08:48→17:23)
[2020-09-04] MEDS: HALOPERIDOL 5 MG TABLET PO PRN ×3 (08:49→17:22)
[2020-09-04] MEDS: FOLIC ACID 1 MG TABLET PO SCH (08:49)
[2020-09-04] MEDS: BENZTROPINE MESYLATE 0.5 MG TABLET PO SCH ×3 (08:49→17:23)
[2020-09-04] MEDS: NALTREXONE HCL 50 MG TABLET PO SCH (08:49)
[2020-09-04] MEDS: OMEGA-3/DHA/EPA/FISH OIL 1,000 MG CAPSULE PO SCH (09:00)
[2020-09-04] MEDS: MULTIVITAMINS WITH MINERALS, THERAPEUTIC TABLET PO SCH (09:00)
[2020-09-04] MEDS ORDERED: CloZAPine 25 MG TABLET PO SCH ×2 (09:00)
[2020-09-04 16:06] VITALS: BP 113/65
[2020-09-04] MEDS ORDERED: CloZAPine 100 MG TABLET PO SCH ×2 (21:00)
[2020-09-04] MEDS: DIVALPROEX SODIUM 500 MG ER TABLET PO SCH (21:14)
[2020-09-04] MEDS: MELATONIN 5 MG TABLET PO SCH (21:15)
[2020-09-04] MEDS: HALOPERIDOL 10 MG TABLET PO SCH (21:15)
[2020-09-04] MEDS: ZOLPIDEM TARTRATE 10 MG TABLET PO PRN (21:15)
[2020-09-04] MEDS: DIVALPROEX SODIUM 250 MG ER TABLET PO SCH (21:36)
[2020-09-05 01:19] VITALS: BP 128/75
[2020-09-05 08:35] VITALS: BP 124/78
[2020-09-05] MEDS: NALTREXONE HCL 50 MG TABLET PO SCH (08:58)
[2020-09-05] MEDS: BENZTROPINE MESYLATE 0.5 MG TABLET PO SCH ×3 (08:58→17:31)
[2020-09-05] MEDS: HALOPERIDOL 5 MG TABLET PO PRN (08:59)
[2020-09-05] MEDS ORDERED: CloZAPine 100 MG TABLET PO SCH ×2 (09:00→21:00)
[2020-09-05] MEDS: OMEGA-3/DHA/EPA/FISH OIL 1,000 MG CAPSULE PO SCH (09:00)
[2020-09-05] MEDS: FOLIC ACID 1 MG TABLET PO SCH (09:00)
[2020-09-05] MEDS: THIAMINE 100 MG TABLET PO SCH ×2 (09:00→17:31)
[2020-09-05] MEDS ORDERED: CloZAPine 25 MG TABLET PO SCH (09:00)
[2020-09-05] MEDS: MULTIVITAMINS WITH MINERALS, THERAPEUTIC TABLET PO SCH (10:06)
[2020-09-05] MEDS ORDERED: PALIPERIDONE PALMITATE 234 MG/1.5 ML SYRINGE IM ONE (16:00)
[2020-09-05 16:49] VITALS: BP 100/61
[2020-09-05] MEDS: DIVALPROEX SODIUM 250 MG ER TABLET PO SCH (20:39)
[2020-09-05] MEDS: DIVALPROEX SODIUM 500 MG ER TABLET PO SCH (20:39)
[2020-09-05] MEDS: MELATONIN 5 MG TABLET PO SCH (20:42)
[2020-09-05] MEDS: PALIPERIDONE 3 MG ER TABLET PO SCH (20:42)
[2020-09-06] MEDS: ZOLPIDEM TARTRATE 10 MG TABLET PO PRN (01:56)
[2020-09-06 04:17] VITALS: BP 113/68
[2020-09-06 08:13] VITALS: BP 107/65
[2020-09-06] MEDS: CloZAPine 100 MG TABLET PO SCH ×3 (08:30→20:52)
[2020-09-06] MEDS: NALTREXONE HCL 50 MG TABLET PO SCH ×2 (08:30→09:00)
[2020-09-06] MEDS: PALIPERIDONE 1.5 MG ER TABLET PO PRN ×2 (08:32→12:36)
[2020-09-06 08:37] LABS: BASOPHILS % (AUTO) 0.4 % (0.0-2.0); EOSINOPHILS % (AUTO) 1.8 % (1.0-6.0); HEMATOCRIT 40.9 % (41-53); HEMOGLOBIN 13.6 g/dL (13.5-17.5); LYMPHOCYTES # (AUTO) 1.7 K/uL (1.0-4.8); LYMPHOCYTES % (AUTO) 24.9 % (22.0-44.0); MEAN CORPUSCULAR HEMOGLOBIN 29.6 pg (26.0-34.0); MEAN CORPUSCULAR HGB CONC 33.2 G/dL (31.0-37.0); MEAN CORPUSCULAR VOLUME 89 fL (80-100); MONOCYTES # (AUTO) 0.5 K/uL (0.1-1.0); MONOCYTES % (AUTO) 7.3 % (2.0-9.0); NEUTROPHILS # (AUTO) 4.5 K/uL (1.8-7.7); NEUTROPHILS % (AUTO) 65.6 % (40.0-70.0); PLATELET COUNT (AUTO) 275 K/uL (150-450); RED BLOOD CELL COUNT(AUTO) 4.58 MIL/uL (4.50-5.90); RED CELL DISTRIBUTION WIDTH 14.4 % (11.5-14.5)
[2020-09-06 08:56] LABS: COVID AG,FIA SOURCE NASOPHARYNGEAL
[2020-09-06] MEDS: MULTIVITAMINS WITH MINERALS, THERAPEUTIC TABLET PO SCH (09:00)
[2020-09-06] MEDS: THIAMINE 100 MG TABLET PO SCH (09:00)
[2020-09-06] MEDS: OMEGA-3/DHA/EPA/FISH OIL 1,000 MG CAPSULE PO SCH (09:00)
[2020-09-06] MEDS: FOLIC ACID 1 MG TABLET PO SCH (09:00)
[2020-09-06] MEDS ORDERED: HALOPERIDOL LACTATE 5 MG/ML VIAL ONE (09:15)
[2020-09-06] MEDS: BENZTROPINE MESYLATE 2 MG TABLET PO SCH ×3 (09:15→16:29)
[2020-09-06] MEDS ORDERED: DiphenhydrAMINE HCL 50 MG/ML VIAL IM ONE (09:15)
[2020-09-06] MEDS: HALOPERIDOL LACTATE 5 MG/ML VIAL IM PRN (09:41)
[2020-09-06 16:08] VITALS: BP 120/78
[2020-09-06] MEDS: DIVALPROEX SODIUM 250 MG ER TABLET PO SCH (20:52)
[2020-09-06] MEDS: DIVALPROEX SODIUM 500 MG ER TABLET PO SCH (20:52)
[2020-09-06] MEDS: PALIPERIDONE 3 MG ER TABLET PO SCH (20:53)
[2020-09-06] MEDS: MELATONIN 5 MG TABLET PO SCH (20:53)
[2020-09-07 00:33] VITALS: BP 118/73
[2020-09-07] MEDS: ZOLPIDEM TARTRATE 10 MG TABLET PO PRN (01:26)
[2020-09-07 08:38] VITALS: BP 106/62
[2020-09-07] MEDS: MULTIVITAMINS WITH MINERALS, THERAPEUTIC TABLET PO SCH (09:00)
[2020-09-07] MEDS ORDERED: CloZAPine 25 MG TABLET PO SCH (09:00)
[2020-09-07] MEDS: OMEGA-3/DHA/EPA/FISH OIL 1,000 MG CAPSULE PO SCH (09:00)
[2020-09-07] MEDS: BENZTROPINE MESYLATE 2 MG TABLET PO SCH ×3 (09:13→16:26)
[2020-09-07] MEDS: CloZAPine 100 MG TABLET PO SCH ×2 (09:13→20:24)
[2020-09-07] MEDS: NALTREXONE HCL 50 MG TABLET PO SCH (09:13)
[2020-09-07 16:28] VITALS: BP 110/64
[2020-09-07] MEDS: DIVALPROEX SODIUM 250 MG ER TABLET PO SCH (20:23)
[2020-09-07] MEDS: PALIPERIDONE 3 MG ER TABLET PO SCH (20:23)
[2020-09-07] MEDS: MELATONIN 5 MG TABLET PO SCH (20:23)
[2020-09-07] MEDS: DIVALPROEX SODIUM 500 MG ER TABLET PO SCH (20:23)
[2020-09-07] MEDS ORDERED: CloZAPine 100 MG TABLET PO SCH (21:00)
[2020-09-08 03:11] VITALS: BP 112/71
[2020-09-08] MEDS: PALIPERIDONE 1.5 MG ER TABLET PO PRN (04:13)
[2020-09-08] MEDS: BENZTROPINE MESYLATE 2 MG TABLET PO SCH ×3 (08:31→16:29)
[2020-09-08] MEDS: NALTREXONE HCL 50 MG TABLET PO SCH (08:31)
[2020-09-08] MEDS: OMEGA-3/DHA/EPA/FISH OIL 1,000 MG CAPSULE PO SCH (08:31)
[2020-09-08] MEDS: MULTIVITAMINS WITH MINERALS, THERAPEUTIC TABLET PO SCH (08:32)
[2020-09-08 08:43] VITALS: BP 112/65
[2020-09-08] MEDS ORDERED: CloZAPine 25 MG TABLET PO SCH ×2 (09:00)
[2020-09-08] MEDS ORDERED: DiphenhydrAMINE HCL 50 MG/ML VIAL IM ONE (12:30)
[2020-09-08] MEDS ORDERED: LORazepam 2 MG/ML VIAL IM ONE (12:30)
[2020-09-08] MEDS ORDERED: HALOPERIDOL LACTATE 5 MG/ML VIAL IM ONE (12:30)
[2020-09-08 16:17] VITALS: BP 130/79
[2020-09-08] MEDS: PALIPERIDONE 3 MG ER TABLET PO SCH (20:03)
[2020-09-08] MEDS: DIVALPROEX SODIUM 500 MG ER TABLET PO SCH (20:03)
[2020-09-08] MEDS: MELATONIN 5 MG TABLET PO SCH (20:03)
[2020-09-08] MEDS: DIVALPROEX SODIUM 250 MG ER TABLET PO SCH (20:03)
[2020-09-08] MEDS: ZOLPIDEM TARTRATE 10 MG TABLET PO PRN (20:04)
[2020-09-08] MEDS ORDERED: CloZAPine 100 MG TABLET PO SCH ×2 (21:00)
[2020-09-09 04:15] VITALS: BP 124/72
[2020-09-09 08:13] VITALS: BP 117/69
[2020-09-09] MEDS ORDERED: CloZAPine 100 MG TABLET PO SCH ×3 (09:00→21:00)
[2020-09-09] MEDS ORDERED: PALIPERIDONE PALMITATE 156 MG/ML SYRINGE IM ONE (09:00)
[2020-09-09] MEDS ORDERED: CloZAPine 25 MG TABLET PO SCH (09:00)
[2020-09-09] MEDS: NALTREXONE HCL 50 MG TABLET PO SCH (09:56)
[2020-09-09] MEDS: MULTIVITAMINS WITH MINERALS, THERAPEUTIC TABLET PO SCH (09:56)
[2020-09-09] MEDS: OMEGA-3/DHA/EPA/FISH OIL 1,000 MG CAPSULE PO SCH (09:56)
[2020-09-09] MEDS: BENZTROPINE MESYLATE 2 MG TABLET PO SCH ×3 (09:57→17:26)
[2020-09-09 16:13] VITALS: BP 107/61
[2020-09-09] MEDS: DIVALPROEX SODIUM 500 MG ER TABLET PO SCH (20:54)
[2020-09-09] MEDS: PALIPERIDONE 3 MG ER TABLET PO SCH (20:54)
[2020-09-09] MEDS: DIVALPROEX SODIUM 250 MG ER TABLET PO SCH (20:54)
[2020-09-09] MEDS: MELATONIN 5 MG TABLET PO SCH (20:54)
[2020-09-10 02:33] VITALS: BP 125/68
[2020-09-10] MEDS: HALOPERIDOL LACTATE 5 MG/ML VIAL IM PRN (08:53)
[2020-09-10] MEDS ORDERED: HALOPERIDOL DECANOATE 50 MG/ML VIAL IM SCH (09:00)
[2020-09-10] MEDS: OMEGA-3/DHA/EPA/FISH OIL 1,000 MG CAPSULE PO SCH (09:00)
[2020-09-10] MEDS: MULTIVITAMINS WITH MINERALS, THERAPEUTIC TABLET PO SCH (09:00)
[2020-09-10] MEDS: CloZAPine 100 MG TABLET PO SCH (09:00)
[2020-09-10] MEDS: BENZTROPINE MESYLATE 2 MG TABLET PO SCH ×2 (09:00→12:57)
[2020-09-10] MEDS: NALTREXONE HCL 50 MG TABLET PO SCH (09:00)
[2020-09-10 09:11] VITALS: BP 116/72
[2020-09-10] MEDS ORDERED: DiphenhydrAMINE HCL 50 MG/ML VIAL IM ONE (09:30)
[2020-09-10] MEDS: PALIPERIDONE 1.5 MG ER TABLET PO PRN (13:32)
[2020-09-10] MEDS ORDERED: OMEG-135 PO (15:58)
[2020-09-10] MEDS ORDERED: CLOZ100T31 PO ×2 (15:58)
[2020-09-10] MEDS ORDERED: TRIH5TAB3 PO (15:58)
[2020-09-10] MEDS ORDERED: NALT50TA PO (15:58)
[2020-09-10] MEDS ORDERED: DIVA-80 PO (15:58)
[2020-09-10] MEDS ORDERED: MELA5TAB3 PO (15:58)
[2020-09-10] MEDS ORDERED: DIVA-85 PO (15:58)
[2020-09-10 16:33] VITALS: BP 113/78
[2020-09-10] MEDS: TRIHEXYPHENIDYL HCL 5 MG TABLET PO SCH (16:46)
[2020-09-10] MEDS: DIVALPROEX SODIUM 500 MG ER TABLET PO SCH (20:46)
[2020-09-10] MEDS: MELATONIN 5 MG TABLET PO SCH (20:46)
[2020-09-10] MEDS: DIVALPROEX SODIUM 250 MG ER TABLET PO SCH (20:46)
[2020-09-10] MEDS: ZOLPIDEM TARTRATE 10 MG TABLET PO PRN (20:49)
[2020-09-10] MEDS ORDERED: CloZAPine 100 MG TABLET PO SCH (21:00)
[2020-09-11 01:46] VITALS: BP 104/64
[2020-09-11] MEDS: MULTIVITAMINS WITH MINERALS, THERAPEUTIC TABLET PO SCH (09:00)
[2020-09-11] MEDS: OMEGA-3/DHA/EPA/FISH OIL 1,000 MG CAPSULE PO SCH (09:00)
[2020-09-11] MEDS: NALTREXONE HCL 50 MG TABLET PO SCH (09:14)
[2020-09-11] MEDS: TRIHEXYPHENIDYL HCL 5 MG TABLET PO SCH ×2 (09:14→12:06)
[2020-09-11] MEDS: CloZAPine 100 MG TABLET PO SCH (09:14)
[2020-09-11] MEDS: ACETAMINOPHEN 325 MG TABLET PO PRN (09:51)
== END 2020-09-11 13:00 | disposition home or self-care (01) | DRG 885 ==
LOC: B2X 19:32 → B3A 08-29 17:39
PROVIDERS: ADMIT Psychiatry & Neurology Psychiatry; ATTEND Psychiatry & Neurology Psychiatry
DX: F20.9 Schizophrenia, unspecified (principal); Z87.891 Personal history of nicotine dependence; I10 Essential (primary) hypertension; Z91.14 Patient's other noncompliance with medication regimen; Z55.9 Problems related to education and literacy, unspecified; Z59.9 Problem related to housing and economic circumstances, unspecified; Z65.3 Problems related to other legal circumstances; Z20.822 Contact with and (suspected) exposure to COVID-19
CPT/HCPCS: 80159; 83036; 84439; 84443; 86592; 87081; 87426; A9575; J1200; J1630; J1631; J2060